=== PATIENT | female | born 1955 | race African-American/Black ===

== ENCOUNTER 2022-06-08 06:54 | Emergency (ER) | payer BC, MEDICAID ==
[~2022-06-08] VITALS: Ht 177.8 cm; Wt 58.0 kg
[~2022-06-08 06:54] MED LIST: AMLO10TA80 PO; LISI10TA26 PO; QUET50TA PO; TRAZ-251 PO
[2022-06-08] MEDS ORDERED: HYDROCODONE/ACETAMINOPHEN 5/325MG TABLET PO PRN (07:45)
[2022-06-08] MEDS ORDERED: ACETAMINOPHEN 325MG TABLET PO ONE (07:45)
[2022-06-08] MEDS ORDERED: IBUP-2029 MT (09:05)
[2022-06-08 11:46] VITALS: BP 126/86
== END 2022-06-08 11:46 | disposition home or self-care (01) ==
LOC: ER 06:54
DX: S01.01XA Laceration without foreign body of scalp, initial encounter (principal); W18.39XA Other fall on same level, initial encounter; Y93.89 Activity, other specified; Y92.89 Other specified places as the place of occurrence of the external cause; Y99.8 Other external cause status; E11.9 Type 2 diabetes mellitus without complications; E78.00 Pure hypercholesterolemia, unspecified; I10 Essential (primary) hypertension; Z79.899 Other long term (current) drug therapy
CPT/HCPCS: 99284

== ENCOUNTER 2022-07-17 11:15 | Emergency (ER) | payer BC, MEDICAID ==
[~2022-07-17] VITALS: Ht 165.1 cm; Wt 54.0 kg
[~2022-07-17 11:15] MED LIST changes: +IBUP-2029 MT
[2022-07-17 11:23] VITALS: BP 168/66
== END 2022-07-17 15:29 | disposition left against medical advice (07) ==
LOC: ER 11:15
DX: Z53.21 Procedure and treatment not carried out due to patient leaving prior to being seen by health care provider (principal)